=== PATIENT | female | born 1975 | race Caucasian/White ===

== ENCOUNTER 2021-02-13 13:02 | Outpatient (REF) | payer OTHER, SELFPAY ==
[2021-02-13 14:38] LABS: Syphilis Screen Reactive (Nonreactive)
[2021-02-20 11:30] LABS: RPR Quantitative Reactive 1:16 (Nonreactive); T.Pallidum Particle Agg Test Reactive (Nonreactive)
== END 2021-02-13 13:03 | disposition home or self-care (01) ==
LOC: HO.LAB 13:02
PROVIDERS: PCP Internal Medicine; Visit Provider Internal Medicine
DX: Z20.2 Contact with and (suspected) exposure to infections with a predominantly sexual mode of transmission (principal)
CPT/HCPCS: 36415; 86592; 86780

== ENCOUNTER → 2021-02-23 14:05 | Outpatient (BNVA) | payer OTHER, SELFPAY | PROVIDERS: Visit Provider Internal Medicine | DX: A53.9 Syphilis, unspecified (principal); Z20.2 Contact with and (suspected) exposure to infections with a predominantly sexual mode of transmission | CPT/HCPCS: 96372; 99202; J0561 ==

== ENCOUNTER → 2021-03-02 14:05 | Outpatient (BNVA) | payer OTHER, SELFPAY | PROVIDERS: PCP Internal Medicine; Visit Provider Internal Medicine | DX: A53.9 Syphilis, unspecified (principal) | CPT/HCPCS: 96372; 99211; J0561 ==

== ENCOUNTER → 2021-03-11 14:34 | Outpatient (BNVA) | payer OTHER, SELFPAY | PROVIDERS: PCP Internal Medicine; Visit Provider Internal Medicine | DX: A53.9 Syphilis, unspecified (principal) | CPT/HCPCS: 96372; 99211; J0561 ==

== ENCOUNTER 2021-09-09 10:43 | Outpatient (REF) | payer OTHER, SELFPAY ==
[2021-09-09 13:35] LABS: Syphilis Screen Reactive (Nonreactive)
[2021-09-10 01:24] LABS: CT PCR NOT DETECTED (Not Detect.); NG PCR NOT DETECTED (Not Detect.)
[2021-09-10 10:16] LABS: BV Int Neg Control Negative (Negative); BV Int Pos Control Positive (Positive)
[2021-09-11 04:59] LABS: HIV AB/AG Nonreactive (Nonreactive); HIV Num 1 0.06 S/CO (0.00-0.99)
[2021-09-11 05:08] LABS: ~HepC Num1 0.05 S/CO (0.00-0.79); ~Hepatitis C Antibody Nonreactive (Nonreactive)
[2021-09-12 12:42] LABS: TS Negative Control Passed; TS Panel A 0; TS Panel B 2; TS Positive Control Passed; TSpotTB Negative (Negative)
[2021-09-12 13:06] LABS: HPV mRNA E6/E7 rflx Not Detected (Not Detected)
[2021-09-14 14:57] LABS: RPR Quantitative Reactive 1:2 (Nonreactive)
[2021-09-14 14:58] LABS: T.Pallidum Particle Agg Test Reactive (Nonreactive)
== END 2021-09-09 10:44 | disposition home or self-care (01) ==
LOC: HO.LAB 10:43
PROVIDERS: Absent Provider Internal Medicine; PCP Internal Medicine; Visit Provider Advanced Practice Midwife
DX: Z01.419 Encounter for gynecological examination (general) (routine) without abnormal findings (principal); Z11.51 Encounter for screening for human papillomavirus (HPV); Z20.2 Contact with and (suspected) exposure to infections with a predominantly sexual mode of transmission; A53.9 Syphilis, unspecified
CPT/HCPCS: 36415; 86481; 86592; 86780; 86803; 87389; 87480; 87491; 87510; 87591; 87624; 87660; 88142

== ENCOUNTER 2023-11-30 15:49 | Outpatient (AMB) | payer OTHER, SELFPAY ==
[2023-11-30 15:56] VITALS: BP 142/72; PULSE 88; O2SAT 99; BMI 37.1
--- NOTE | 2023-11-30 15:56 | MHC.PC.OV ---
Vital Signs 11/30/23 15:56 Height 5 ft 7 in Weight 237 lb BMI 37.1 BP 142/72 H Blood Pressure Location Lt brachial Position Sitting Pulse 88 Pulse Source Pulse Oximeter Pulse Oximetry (%) 99 Oxygen Delivery Method Room Air Intake Visit Reasons: [facility]/13 Knee Discomfort (Ortho Referral) Intake Note: Dr. Neal's pt here for [facility] F/U due to knee pain due to a fall. Pt requesting Ortho referral. 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 Accompanied by: Self / Same As Patient Allergies pineapple [PINEAPPLE] Allergy (Unknown, Verified 11/30/23 16:22) WHITE BUMPS ON TONGUE metformin Adverse Reaction (Unknown, Verified 11/30/23 16:22) diarrhea Medication List - Last Reconciled 11/30/23 by Eduardo Tran PA-C No Known Home Meds Tobacco use date assessed: 11/30/23 Dental Screening Dental Screen Date: 11/30/23 Did you have a dental visit in the last 12 months?: Yes Did you have a dental problem in the last 6 months where you did not have access to dental care?: No Was dental information given to patient?: Patient has dentist HPI [facility]/13 Knee Discomfort (Ortho Referral) HPI Details Patient is a 48-year-old female here today for an ER follow-up visit. This is the 1st time I am meeting this 48-year-old female with a past medical history significant for obesity, anxiety, multiple sclerosis. Patient seen at [facility] in early October 2023 for acute severe knee pain and swelling. X-ray of her knee while in the ER showing severe osteoarthritis per patient. Currently doing much better and has much less knee pain. She is interested in seeing orthopedic. She attributes her symptoms to perhaps her MS as she does have some numbness in her leg intermittently. 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 1. Little interest or pleasure in doing things: several days 2. Feeling down, depressed, or hopeless: nearly every day 3. Trouble falling or staying asleep, or sleeping too much: nearly every day 4. Feeling tired or having little energy: nearly every day 5. Poor appetite or overeating: not at all 6. Feeling bad about yourself - or that you are a failure or have let yourself or your family down: not at all 7. Trouble concentrating on things, such as reading the newspaper or watching television: not at all 8. Moving or speaking so slowly that other people could have noticed. Or the opposite - being so fidgety or restless that you have been moving around a lot more than usual: not at all 9. Thoughts that you would be better off or of hurting yourself in some way: not at all Total score: 10 Depression Screening Interpretation: Positive Depression Screening Follow-up: Existing condition Depression Screening Done: Yes 12255 - PHQ-9 Billing: Yes Source: Developed by Drs. Toney Ibanez, Roxana Carter, Amos Yun and colleagues, with an educational jocelynn from [employer] Thrive Questionnaire Date Thrive assessed: 11/30/23 I am a: Patient What is your living situation today?: I have a steady place to live Within the past 12 months, did the food you bought not last and you didn't have the money to get more?: Never true Within the past 12 months, did you worry whether your food would run out before you got money to buy more?: Never true Do you have trouble paying for medicines?: No Do you have trouble getting transportation to medical appointments?: No Do you have trouble paying your heating and electricity bill?: No Do you have trouble taking care of your child, family member or friend?: No Do you have trouble with day-to-day activities such as bathing, preparing meals, shopping, managing finances, etc.?: No Are you currently unemployed and looking for a job?: No Are you interested in more education?: No Please select the resources that you would like help with: None Currently or been in a relationship where the following occur: no concerns reported THRIVE Score: 0 AUDIT C Alcohol Use Questionnaire (AUDIT-C) 1. How often do you have a drink containing alcohol?: Never 3. How often do you have six or more drinks on one occasion?: Never Total Score: 0 JOHN-7 AMB Questionnaire JOHN-7 Date JOHN - 7 assessed: 11/30/23 Feeling nervous, anxious, or on edge: 3 = Nearly every day Not being able to stop or control worryin = Nearly every day Worrying too much about different things: 3 = Nearly every day Trouble relaxin = Nearly every day Being so restless that it is hard to sit still: 2 = More than half the days Becoming easily annoyed or irritable: 0 = Not at all Feeling afraid as if something awful might happen: 3 = Nearly every day Total JOHN-7 score (0-4 normal; 5-9 mild; 10-14 moderate; 15-21 severe): 17 Source: Developed by Drs. Toney Ibanez, Roxana Carter, Amos Yun and colleagues, with an educational jocelynn from [employer] JOHN-7 Assessment Billing JOHN-7 Assessment Tool: JOHN-7 Assessment 82637 Review of Systems Const Denies headache(s) Eyes Denies loss of vision ENT Denies vertigo, Denies dizziness, Denies headache(s) and Denies sore throat Card Denies chest pain, Denies leg edema and Denies lightheadedness Resp Denies cough, Denies hemoptysis and Denies wheezing GI Denies abdominal pain, Denies melena, Denies constipation, Denies diarrhea and Denies vomiting Denies urinary frequency, Denies dysuria and Denies urinary urgency Musc Denies arthralgias, Denies joint swelling, Denies numbness and Denies tingling Neuro Denies Abnormal speech present, Denies behavioral changes, Denies vertigo, Denies dizziness, Denies headache(s), Denies loss of vision, Denies memory loss, Denies numbness and Denies tingling Psych Denies anxiety, Denies behavioral changes, Denies depression, Denies memory loss and Denies panic attacks William/Lymph Denies easy bleeding and Denies easy bruising Aller/Immun Denies wheezing Physical exam (Primary Care) Vital Signs: Last Vital Signs Pulse 88 11/30/23 15:56 BP 142/72 H 11/30/23 15:56 Pulse Ox 99 11/30/23 15:56 Oxygen Delivery Method Room Air 11/30/23 15:56 BMI result Body Mass Index 37.1 Tobacco/Smoking Status: Tobacco use Status Tobacco use date assessed 11/30/23 11/30/23 16:18 Patient Tobacco Use Status Never used Tobacco 11/30/23 15:56 e-Cigarette/Vaping Use Never Used 11/30/23 15:56 PHQ-9: PHQ-9 Score PHQ-9: Total score 10 11/30/23 16:38 Depression Screening Interpretation: Positive Depression Screening Follow-up: Existing condition Thrive Assessment: Date of Thrive Assessment Date Thrive assessed 11/30/23 11/30/23 16:18 Currently or been in a relationship where the following occur: no concerns reported Const General: healthy appearing, no acute distress, alert and awake Nutritional Appearance: well nourished Orientation/consciousness: oriented to person, oriented to place and oriented to time HENMT Ears: TM's normal bilaterally General nose exam: Normal nasal mucous membranes and turbinates present Eyes Conjunctivae: conjunctivae normal Sclerae: sclerae normal Pupils: Equal, round and reactive pupils present Neck Neck: Yes no lymphadenopathy and Yes no JVD Thyroid: Thyroid normal Carotids: no bruits Resp Effort & Inspection: normal respiratory effort and not tachypneic Auscultation: no crackles, no rales, no rhonchi and no wheezes Cardio Rate: regular rate Rhythm: regular rhythm Heart sounds: no murmurs and normal S1 and S2 GI Palpation (GI): Soft to palpation, nontender, no hepatomegaly and no splenomegaly Auscultation: normal bowel sounds Skin General skin exam: no rashes or lesions noted and dry skin Neuro General: oriented to person, oriented to place and oriented to time Cranial nerves: Yes Equal, round and reactive pupils present Speech: No Abnormal speech present Gait exam (Neuro): Normal gait present Motor exam (neuro): no tremor noted Extrem Right upper extremity: full ROM Left upper extremity: full ROM Right lower extremity: full ROM; no edema Left lower extremity: full ROM; no edema Psych Mental Status: mental status grossly normal Speech and movement: Normal speech and movement present Affect: normal affect Attitude: cooperative Thought process: Normal thought process present Assessment and Plan Assessment & Plan (1) Osteoarthritis of left knee: Code(s): M17.12 - Unilateral primary osteoarthritis, left knee Qualifiers: Osteoarthritis type: primary Qualified Code(s): M17.12 - Unilateral primary osteoarthritis, left knee Plan: Was found to severe arthritis in her left knee when at [facility]. Her pain has subsided though still has a bit of a limp and mild pain in her left knee. Physical exam today fairly benign without any overt edema or ligamentous laxity. She attributes some of her pain to her MS though this is unclear. She would like to see orthopedic for evaluation and possible treatment. (2) RLS (restless legs syndrome): Code(s): G25.81 - Restless legs syndrome Plan: Reports suffering with restless leg syndrome for many years, has tried Requip and gabapentin though were not helpful. She is willing to try magnesium and propanolol off-label for her restless legs (3) Multiple sclerosis: Code(s): G35 - Multiple sclerosis Plan: Has lost follow-up with Neurology. She was due for brain MRI though was claustrophobic and not able to get testing done. She would like a new neurologist Orders: Orders PT Evaluation and Treatment 11/30/23 M17.12 - Unilateral primary osteoarthritis, left knee Referrals Neurology Referral G35 - Multiple sclerosis Orthopedics Referral M17.12 - Unilateral primary osteoarthritis, left knee Medications: New magnesium oxide 250 mg PO BID 30 days 60 tabs 0RF G25.81 - Restless legs syndrome, R51.9 - Headache, unspecified propranolol 10 mg PO ONCE 7 days PRN 7 tabs 0RF anxiety G25.81 - Restless legs syndrome Coding Level of Care Code Est Pt Level 4 (04426) Diagnoses Primary osteoarthritis of left knee M17.12 Osteoarthritis type: primary RLS (restless legs syndrome) G25.81 Multiple sclerosis G35 Additional Codes JOHN-7 Assessment Billing - JOHN-7 Assessment Tool: JOHN-7 Assessment 61980 ([id number])
== END 2023-11-30 16:35 | disposition home or self-care (01) ==
PROVIDERS: PCP Internal Medicine; Visit Provider Physician Assistant
DX: M17.12 Unilateral primary osteoarthritis, left knee (principal); G25.81 Restless legs syndrome; G35 Multiple sclerosis; F41.9 Anxiety disorder, unspecified
CPT/HCPCS: 99214

== ENCOUNTER 2025-05-20 15:04 | Outpatient (AMB) | payer OTHER, SELFPAY ==
--- NOTE | 2025-05-20 15:15 | MHC.PC.OV ---
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 Accompanied by: Self / Same As Patient Allergies pineapple (PINEAPPLE) Allergy (Unknown, Verified 05/20/25 15:38) WHITE BUMPS ON TONGUE metformin Adverse Reaction (Unknown, Verified 05/20/25 15:38) diarrhea Medication List - Last Reconciled 05/20/25 by Norma Ridley MD magnesium oxide 250 mg PO BID 30 days propranolol 10 mg PO DAILY PRN 90 days Tobacco use date assessed: 05/20/25 Dental Screening Dental Screen Date: 05/20/25 Did you have a dental visit in the last 12 months?: No Did you have a dental problem in the last 6 months where you did not have access to dental care?: No Was dental information given to patient?: No HPI HPI Comments History of Present Illness Details The patient is a 50-year-old female presenting for follow-up on her chronic condition, specifically multiple sclerosis. She is not currently under the care of a neurologist and requires a referral for specialized management. The patient also reports having restless leg syndrome, for which she has been taking medications without significant improvement. Her last MRI of the brain was conducted over a year ago, and a new MRI has been ordered to assess her current neurological status. Additionally, she has impaired glucose tolerance, and tests including A1c and blood sugar levels have been ordered to monitor her condition. She denies experiencing any chest pain or dyspnea. The patient is also noted to be obese and has been advised to engage in dietary modifications and regular exercise to manage her weight. Preventative care measures were discussed, and it was noted that she has not yet undergone a mammogram. 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 1. Little interest or pleasure in doing things: not at all 2. Feeling down, depressed, or hopeless: not at all 3. Trouble falling or staying asleep, or sleeping too much: nearly every day 4. Feeling tired or having little energy: nearly every day 5. Poor appetite or overeating: not at all 6. Feeling bad about yourself - or that you are a failure or have let yourself or your family down: not at all 7. Trouble concentrating on things, such as reading the newspaper or watching television: not at all 8. Moving or speaking so slowly that other people could have noticed. Or the opposite - being so fidgety or restless that you have been moving around a lot more than usual: not at all 9. Thoughts that you would be better off or of hurting yourself in some way: not at all Total score: 6 Depression Screening Interpretation: Positive Depression Screening Follow-up: Existing condition and Follow-up Visit Requested Depression Screening Done: Yes 64156 - PHQ-9 Billing: Yes Source: Developed by Drs. Toney Ibanez, Roxana Carter, Amos Yun and colleagues, with an educational jocelynn from [employer] Thrive Questionnaire Date Thrive assessed: 05/20/25 I am a: Patient What is your living situation today?: I have a steady place to live Within the past 12 months, did the food you bought not last and you didn't have the money to get more?: Never true Within the past 12 months, did you worry whether your food would run out before you got money to buy more?: Sometimes True Do you have trouble paying for medicines?: No Do you have trouble getting transportation to medical appointments?: No Do you have trouble paying your heating and electricity bill?: No Do you have trouble taking care of your child, family member or friend?: No Do you have trouble with day-to-day activities such as bathing, preparing meals, shopping, managing finances, etc.?: No Are you currently unemployed and looking for a job?: No Are you interested in more education?: No Please select the resources that you would like help with: None Currently or been in a relationship where the following occur: No concerns reported THRIVE Score: 1 AUDIT C Alcohol Use Questionnaire (AUDIT-C) 1. How often do you have a drink containing alcohol?: Monthly or less 2. How many drinks containing alcohol do you have on a typical day when you are drinking?: 1 or 2 3. How often do you have six or more drinks on one occasion?: Never Total Score: 1 Score Reviewed/Action Taken: No JOHN-7 AMB Questionnaire JOHN-7 Date JOHN - 7 assessed: 05/20/25 Feeling nervous, anxious, or on edge: 2 = More than half the days Not being able to stop or control worryin = More than half the days Worrying too much about different things: 2 = More than half the days Trouble relaxin = Nearly every day Being so restless that it is hard to sit still: 3 = Nearly every day Becoming easily annoyed or irritable: 2 = More than half the days Feeling afraid as if something awful might happen: 0 = Not at all Total JOHN-7 score (0-4 normal; 5-9 mild; 10-14 moderate; 15-21 severe): 14 Source: Developed by Drs. Toney Ibanez, Roxana Carter, Amos Yun and colleagues, with an educational jocelynn from [employer]. JOHN-7 Assessment Billing JOHN-7 Assessment Tool: JOHN-7 Assessment 24843 Review of Systems Const All systems reviewed & are unremarkable except as noted in HPI and below Card Denies chest pain at rest, Denies chest pain with activity, Denies edema, Denies irregular heart rhythm, Denies claudication, Denies dyspnea, Denies dyspnea on exertion, Denies orthopnea, Denies paroxysmal nocturnal dyspnea and Denies slow heart rate Resp Denies cough, Denies dyspnea and Denies dyspnea on exertion GI Denies abdominal pain, Denies change in bowel habits, Denies excessive flatus, Denies nausea and Denies vomiting Physical exam (Primary Care) Vital Signs: Last Vital Signs Pulse 67 05/20/25 15:19 BP 140/92 H 05/20/25 15:19 Pulse Ox 97 05/20/25 15:19 Oxygen Delivery Method Room Air 05/20/25 15:19 BMI result Body Mass Index 35.5 BMI Assessment/Plan discussion: High BMI High, discussed plan: lifestyle, weight reduction, dietary and physical activity Tobacco/Smoking Status: Tobacco use Status Tobacco use date assessed 05/20/25 05/20/25 15:18 Patient Tobacco Use Status Never used Tobacco 05/20/25 15:18 e-Cigarette/Vaping Use Never Used 05/20/25 15:18 PHQ-9: PHQ-9 Score PHQ-9: Total score 6 05/20/25 15:42 Depression Screening Interpretation: Positive Depression Screening Follow-up: Existing condition and Follow-up Visit Requested Thrive Assessment: Date of Thrive Assessment Date Thrive assessed 05/20/25 05/20/25 15:18 Currently or been in a relationship where the following occur: No concerns reported Resp Effort & Inspection: normal respiratory effort Auscultation: clear to auscultation bilaterally Cardio Jugular venous distension: no JVD Rate: regular rate Rhythm: regular rhythm Heart sounds: S1 normal heart sound present and S2 normal heart sound present Extrem General: Yes full ROM Coding Level of Care Code Est Pt Level 4 (87192) Complex EM visit Add On G2211 Diagnoses Multiple sclerosis G35 RLS (restless legs syndrome) G25.81 Obesity (BMI 30-39.9) E66.9 Impaired glucose tolerance R73.02 Additional Codes JOHN-7 Assessment Billing - JOHN-7 Assessment Tool: JOHN-7 Assessment 63550 ([id number]) PHQ-9 - 65963 - PHQ-9 Billing: Yes ([id number]) Time Spent (min) 24 Assessment & Plan Assessment & Plan (1) Multiple sclerosis: Code(s): G35 - Multiple sclerosis Category: Medical (2) RLS (restless legs syndrome): Code(s): G25.81 - Restless legs syndrome Category: Medical (3) Obesity (BMI 30-39.9): Code(s): E66.9 - Obesity, unspecified Category: Medical (4) Impaired glucose tolerance: Code(s): R73.02 - Impaired glucose tolerance (oral) Category: Medical Plan A referral to a neurologist will be made to ensure specialized care for the patient's multiple sclerosis. An MRI of the brain has been ordered to evaluate the current status of her neurological condition. For her restless leg syndrome, a review of her current medications will be conducted to explore alternative treatments that may provide better symptom control. To address her impaired glucose tolerance, A1c and blood sugar tests have been ordered to monitor her glycemic status. Lifestyle modifications, including dietary changes and increased physical activity, have been recommended to manage her obesity. Preventative care measures include scheduling a mammogram, as she has not yet undergone this screening. Patient was informed and verbally consented to the use of an ambient scribe for clinic note documentation during this visit. Orders: Orders MM tomosynthesis screening BI Today Z12.31 - Encounter for screening mammogram for malignant neoplasm of breast Comprehensive [place]. Panel Fast Today G35 - Multiple sclerosis MR head/brain wo con Today G35 - Multiple sclerosis Hemoglobin A1c Today E11.9 - Type 2 diabetes mellitus without complications Lipid Panel Today E78.5 - Hyperlipidemia, unspecified Referrals Neurology Referral G35 - Multiple sclerosis Medications: New alprazolam Take 30 minutes before MRI. 0.5 mg PO DAILY 1 tab 0RF 1 day Discontinued magnesium oxide Discontinued Reason: Patient Completed Course 250 mg PO BID 30 days 60 tabs 0RF G25.81 - Restless legs syndrome, R51.9 - Headache, unspecified propranolol Discontinued Reason: Patient Completed Course 10 mg PO DAILY 90 days PRN 90 tabs 0RF anxiety G25.81 - Restless legs syndrome
[2025-05-20 15:19] VITALS: BP 140/92; PULSE 67; O2SAT 97; BMI 35.5
== END 2025-05-20 15:52 | disposition home or self-care (01) ==
LOC: HO.HMCH 15:05
PROVIDERS: PCP Internal Medicine; Visit Provider Internal Medicine
DX: G35 Multiple sclerosis (principal); G25.81 Restless legs syndrome; E66.9 Obesity, unspecified; Z68.35 Body mass index [BMI] 35.0-35.9, adult; R73.02 Impaired glucose tolerance (oral)

== ENCOUNTER → 2025-05-20 15:04 | Outpatient (BNVA) | payer OTHER, SELFPAY | PROVIDERS: PCP Internal Medicine; Visit Provider Internal Medicine | DX: G35 Multiple sclerosis (principal); G25.81 Restless legs syndrome; E66.9 Obesity, unspecified; E11.9 Type 2 diabetes mellitus without complications; E78.5 Hyperlipidemia, unspecified; R51.9 Headache, unspecified; Z68.35 Body mass index [BMI] 35.0-35.9, adult | CPT/HCPCS: 96127 ==